=== PATIENT | male | born 1955 | race African-American/Black ===

== ENCOUNTER 2020-08-04 20:33 | Emergency (ER) | payer BC, MEDICAID ==
[~2020-08-04] VITALS: Ht 200.7 cm; Wt 100.0 kg
[2020-08-04] MEDS ORDERED: LABETALOL HCL 20MG/4ML CARPUJECT IV ONE (22:30)
[2020-08-04] MEDS ORDERED: ASPIRIN 81MG TABLET PO ONE (22:30)
[2020-08-04] MEDS ORDERED: LABETALOL 5MG/ML SYR 20 MG/4 ML SYRINGE IV NR (22:30)
[2020-08-04 22:51] LABS: BASOPHILS % 0.9 % (0.0-2.0); EOSINOPHILS % 8.7 % (0.0-5.0); HEMATOCRIT. 48.2 % (42.0-52.0); HEMOGLOBIN. 16.3 g/dL (14.0-18.0); LYMPHOCYTES % 29.1 % (20.0-50.0); MEAN CORPUSCULAR HEMOGLOBIN 28.7 pg (28.0-32.0); MEAN CORPUSCULAR VOLUME 84.6 fL (80.0-94.0); MEAN PLATELET VOLUME 9.1 fl (7.4-10.4); MONOCYTES % 8.7 % (2.0-8.0); NEUTROPHILS % 52.6 % (40.0-76.0); PLATELET 227 x1000/uL (130-400); RED BLOOD CELL COUNT 5.69 mill/uL (4.7-6.1); RED CELL DISTRIBUTION WIDTH 14.5 % (11.6-14.6)
[2020-08-04 22:52] LABS: CHLORIDE 105 mEq/L (98-107)
[2020-08-05] MEDS ORDERED: METF-414 MT (02:21)
[2020-08-05] MEDS ORDERED: AMLO5TAB88 MT (02:21)
[2020-08-05] MEDS ORDERED: ALBU6.7H9 INH (02:22)
[2020-08-05 04:35] VITALS: BP 154/90
== END 2020-08-05 04:00 | disposition home or self-care (01) ==
LOC: ER 20:33
DX: R07.89 Other chest pain (principal); I10 Essential (primary) hypertension; E11.65 Type 2 diabetes mellitus with hyperglycemia; Z79.899 Other long term (current) drug therapy
CPT/HCPCS: 36415; 71045; 80053; 82962; 83880; 84484; 85025; 93005; 96374; 99285; J3490; Z7610

== ENCOUNTER 2022-04-03 05:10 | Emergency (ER) | payer MEDICARE, MEDICAID ==
[~2022-04-03] VITALS: Ht 198.1 cm; Wt 110.9 kg
[~2022-04-03 05:10] MED LIST: ALBU6.7H3 INH; AMLO5TAB88 MT; METF-414 MT
[2022-04-03 06:00] VITALS: BP 125/92
[2022-04-03] MEDS ORDERED: IBUP-2029 MT (12:54)
== END 2022-04-03 13:07 | disposition home or self-care (01) ==
LOC: ER 05:10
DX: S82.52XA Displaced fracture of medial malleolus of left tibia, initial encounter for closed fracture (principal); E11.9 Type 2 diabetes mellitus without complications; I10 Essential (primary) hypertension; V09.9XXA Pedestrian injured in unspecified transport accident, initial encounter; Y93.89 Activity, other specified; Y92.410 Unspecified street and highway as the place of occurrence of the external cause
CPT/HCPCS: 36415; 73610; 85379; 93971; 99285

== ENCOUNTER 2022-11-09 13:55 | Inpatient (IN) | payer MEDICARE, MEDICAID ==
[~2022-11-09] VITALS: Ht 200.7 cm; Wt 103.0 kg
[~2022-11-09 13:55] MED LIST changes: +IBUP-2029 MT
[2022-11-09 19:38] LABS: EOSINOPHILS % 5.4 % (0.0-5.0); HEMATOCRIT. 46.7 % (42.0-52.0); HEMOGLOBIN. 15.1 g/dL (14.0-18.0); LYMPHOCYTES % 26.9 % (20.0-50.0); MEAN CORPUSCULAR HEMOGLOBIN 27.3 pg (28.0-32.0); MEAN CORPUSCULAR VOLUME 84.4 fL (80.0-94.0); MEAN PLATELET VOLUME 7.8 fl (7.4-10.4); MONOCYTES % 10.5 % (2.0-8.0); NEUTROPHILS % 56.2 % (40.0-76.0); PLATELET 316 x1000/uL (130-400); RED BLOOD CELL COUNT 5.53 mill/uL (4.7-6.1)
[2022-11-09 19:49] LABS: CHLORIDE 101 mEq/L (98-107)
[2022-11-09] MEDS ORDERED: VANCOMYCIN 1G PREMIX 200 ML IV SCH (21:00)
[2022-11-09] MEDS ORDERED: PIPERACILLIN/TAZ 3.375G PREMIX 50 ML IV NR (21:00)
[2022-11-09] MEDS ORDERED: SODIUM CHLORIDE 0.9% 1,000 ML IV ONE (21:00)
[2022-11-09] MEDS ORDERED: PIPERACILLIN/TAZOBACTAM 3.375GM/50ML PREMIX IV NR (21:00)
[2022-11-09] MEDS ORDERED: CLONIDINE 0.1MG TABLET PO PRN (23:30)
[2022-11-09] MEDS ORDERED: IPRATROPIUM/ALBUTEROL 0.5-3(2.5)MG/3ML NEB HHN PRN (23:30)
[2022-11-09] MEDS ORDERED: DOCUSATE SODIUM 100MG CAPSULE PO PRN (23:30)
[2022-11-09] MEDS ORDERED: GUAIFENESIN 200MG/10ML SUGAR FREE UDC PO PRN (23:30)
[2022-11-09] MEDS ORDERED: ACETAMINOPHEN 325MG TABLET PO PRN (23:30)
[2022-11-09] MEDS ORDERED: ONDANSETRON HCL 4MG/2ML INJ IV PRN (23:30)
[2022-11-09] MEDS ORDERED: DEXTROSE 50% WATER 50ML SYRINGE IV PRN (23:30)
[2022-11-09] MEDS ORDERED: SODIUM CHLORIDE 0.9% 1,000 ML IV SCH (23:30)
[2022-11-09] MEDS ORDERED: MAGNESIUM/ALUMINUM HYDROXIDE/SIMETHICONE 30ML UDC PO PRN (23:30)
[2022-11-09] MEDS ORDERED: AMLODIPINE 5MG TABLET PO SCH (23:45)
[2022-11-09] MEDS ORDERED: CEFEPIME 1,000 MG in DEXTROSE 5% WATER 50 ML IV SCH (23:59)
[2022-11-10] MEDS: PANTOPRAZOLE 40MG DR TABLET PO SCH ×2 (00:18→11:59)
[2022-11-10] MEDS: HYDROCODONE/ACETAMINOPHEN 5/325MG TABLET PO PRN ×3 (00:18→20:28)
[2022-11-10 00:43] LABS: CHLORIDE 103 mEq/L (98-107)
[2022-11-10 00:53] LABS: HDL CHOLESTEROL 65 mg/dL (40-59); LDL CHOLESTEROL 68 mg/dL (5-100)
[2022-11-10] MEDS ORDERED: KCL 10MEQ/50ML PREMIX 50 ML IV NR ×2 (01:00→18:00)
[2022-11-10 01:07] LABS: D-DIMER 1.03 mg/L FEU (<0.50); PROTHROMBIN TIME 10.8 sec (9.6-11.0)
[2022-11-10 01:15] LABS: FOLIC ACID (FOLATE) SERUM >20 ng/mL ng/mL (>5.38); VITAMIN B12 SERUM 297 pg/mL (211-911)
[2022-11-10 02:45] VITALS: BP 144/84; PULSE 64; RESP 20; TEMP 96.3
[2022-11-10 04:00] VITALS: BP 144/84; PULSE 64; RESP 20; TEMP 96.3
[2022-11-10] MEDS: INSULIN LISPRO 100 UNITS/ML SUBCUT SCH ×4 (07:28→21:00)
[2022-11-10] MEDS: BLOOD SUGAR DIAGNOSTIC STRIP TEST SCH ×4 (07:28→21:00)
[2022-11-10 08:00] VITALS: BP 135/87; PULSE 64; RESP 19; TEMP 97.9
[2022-11-10] MEDS: LOSARTAN POTASSIUM 100 MG TABLET PO SCH ×2 (09:00→11:17)
[2022-11-10] MEDS: ENOXAPARIN 40MG/0.4ML SYR SUBCUT SCH (09:00)
[2022-11-10 09:10] LABS: BASOPHILS % 1.4 % (0.0-2.0); EOSINOPHILS % 6.3 % (0.0-5.0); HEMATOCRIT. 44.3 % (42.0-52.0); HEMOGLOBIN. 14.7 g/dL (14.0-18.0); LYMPHOCYTES % 15.7 % (20.0-50.0); MEAN CORPUSCULAR HEMOGLOBIN 27.2 pg (28.0-32.0); MEAN CORPUSCULAR VOLUME 81.9 fL (80.0-94.0); MONOCYTES % 10.4 % (2.0-8.0); NEUTROPHILS % 66.2 % (40.0-76.0); PLATELET 311 x1000/uL (130-400); RED BLOOD CELL COUNT 5.41 mill/uL (4.7-6.1); RED CELL DISTRIBUTION WIDTH 15.7 % (11.6-14.6)
[2022-11-10 12:00] VITALS: BP 145/92; PULSE 64; RESP 18; TEMP 97.9
[2022-11-10] MEDS: CEFEPIME 2,000 MG in DEXT 5% WATER 100 ML IV SCH (12:00)
[2022-11-10] MEDS: VANCOMYCIN 1.25GM PMX (XELLIA) 250 ML IV SCH (13:30)
[2022-11-10 15:09] LABS: T4 FREE 1.14 ng/dL (0.76-1.46)
[2022-11-10 16:00] VITALS: BP 141/89; PULSE 69; RESP 19; TEMP 97.9
[2022-11-10] MEDS ORDERED: NALOXONE HCL 0.4MG/ML VIAL IV PRN (17:00)
[2022-11-10 20:00] VITALS: BP 151/79; PULSE 66; RESP 20; TEMP 97.8
[2022-11-10] MEDS ORDERED: ATORVASTATIN CALCIUM 40MG TABLET PO SCH (21:00)
[2022-11-11] VITALS (7 sets, daily range): BP systolic 117–145; BP diastolic 71–87; PULSE 55–65; RESP 18–20; TEMP 96.8–98.8; O2SAT 100
[2022-11-11] MEDS: VANCOMYCIN 1.25GM PMX (XELLIA) 250 ML IV SCH (01:13)
[2022-11-11] MEDS: BLOOD SUGAR DIAGNOSTIC STRIP TEST SCH ×3 (06:54→17:13)
[2022-11-11] MEDS: INSULIN LISPRO 100 UNITS/ML SUBCUT SCH ×3 (07:55→17:14)
[2022-11-11] MEDS: PANTOPRAZOLE 40MG DR TABLET PO SCH (08:20)
[2022-11-11 08:45] LABS: CHLORIDE 103 mEq/L (98-107)
[2022-11-11 08:46] LABS: HEMATOCRIT 45.2 % (42.0-52.0); HEMOGLOBIN 14.8 g/dL (14.0-18.0); MEAN CORPUSCULAR HEMOGLOBIN 27.2 pg (28.0-32.0); MEAN CORPUSCULAR VOLUME 83.2 fL (80.0-94.0); PLATELET 328 x1000/uL (130-400); RED BLOOD CELL COUNT 5.43 mill/uL (4.7-6.1); RED CELL DISTRIBUTION WIDTH 15.5 % (11.6-14.6)
[2022-11-11] MEDS: LOSARTAN POTASSIUM 100 MG TABLET PO SCH (08:52)
[2022-11-11] MEDS: HYDROCODONE/ACETAMINOPHEN 5/325MG TABLET PO PRN (08:52)
[2022-11-11] MEDS: ENOXAPARIN 40MG/0.4ML SYR SUBCUT SCH (09:00)
[2022-11-11] MEDS ORDERED: VANCOMYCIN 1.25GM PMX (XELLIA) 250 ML IV SCH (11:00)
[2022-11-11] MEDS: CEFEPIME 2,000 MG in DEXT 5% WATER 100 ML IV SCH ×3 (12:41)
[2022-11-12] MEDS ORDERED: FAMOTIDINE 20MG TABLET PO SCH (09:00)
== END 2022-11-11 18:34 | disposition home or self-care (01) | DRG 638 ==
LOC: ER 13:55 → 6EST 23:52
PROVIDERS: ADMIT Internal Medicine; ATTEND Internal Medicine
DX: E11.69 Type 2 diabetes mellitus with other specified complication (principal); L02.611 Cutaneous abscess of right foot; M86.8X7 Other osteomyelitis, ankle and foot; E11.42 Type 2 diabetes mellitus with diabetic polyneuropathy; E78.5 Hyperlipidemia, unspecified; L97.519 Non-pressure chronic ulcer of other part of right foot with unspecified severity; I10 Essential (primary) hypertension; E11.51 Type 2 diabetes mellitus with diabetic peripheral angiopathy without gangrene; E78.00 Pure hypercholesterolemia, unspecified; R74.8 Abnormal levels of other serum enzymes; R79.89 Other specified abnormal findings of blood chemistry; F17.210 Nicotine dependence, cigarettes, uncomplicated; J45.909 Unspecified asthma, uncomplicated; Z79.4 Long term (current) use of insulin; Z79.84 Long term (current) use of oral hypoglycemic drugs; Z79.899 Other long term (current) drug therapy
CPT/HCPCS: 36415; 73630; 73660; 73718; 80048; 80053; 80061; 82607; 82746; 82962; 83036; 83605; 84145; 84439; 84443; 85025; 85027; 85379; 93970; 99285; J0692; J1650; J1815; J2543; J3370; J3480; J7030; J7060

== ENCOUNTER 2024-08-03 03:20 | Inpatient (IN) | payer OTHER, MEDICAID, MEDICARE ==
[~2024-08-03] VITALS: Ht 200.7 cm; Wt 114.0 kg
[~2024-08-03 03:20] MED LIST changes: +AMI2 MT; -AMLO5TAB88 MT; +APIX5TAB MT; +ASPI-1406 PO; +BO1 TP; +FLUT9.9S BOTHNSTRLS; +HYDR-4001 MT; -IBUP-2029 MT; +LIP40 PO; +METO-539 PO
[2024-08-03 04:08] LABS: DIFFERENTIAL COMMENT 0; HEMATOCRIT. 38.5 % (42.0-52.0); HEMOGLOBIN. 12.3 g/dL (14.0-18.0); LYMPHOCYTES % 13.1 % (20.0-50.0); MEAN CORPUSCULAR HEMOGLOBIN 24.3 pg (28.0-32.0); MEAN CORPUSCULAR VOLUME 75.9 fL (80.0-94.0); MEAN PLATELET VOLUME 8.4 fl (7.4-10.4); MONOCYTES % 8.8 % (2.0-8.0); NEUTROPHILS % 73.1 % (40.0-76.0); PLATELET 267 x1000/uL (130-400); RED BLOOD CELL COUNT 5.07 mill/uL (4.7-6.1); RED CELL DISTRIBUTION WIDTH 17.2 % (11.6-14.6); WHITE BLOOD COUNT 9.6 x1000/uL (4.5-11.0)
[2024-08-03 04:15] LABS: CHLORIDE 107 mEq/L (98-107); POTASSIUM 3.9 mEq/L (3.5-5.1); SODIUM 141 mEq/L (136-145)
[2024-08-03 04:16] LABS: CARBON DIOXIDE 29 mEq/L (21-32)
[2024-08-03 04:21] LABS: CREATININE 0.8 mg/dL (0.6-1.3); GLUCOSE 136 mg/dL (70-105); UREA NITROGEN BLOOD 14 mg/dL (9-23)
[2024-08-03 04:22] LABS: TROPONIN I HIGH SENSITIVITY 30 ng/L (3.0-53)
[2024-08-03] MEDS ORDERED: LOSA-415 MT (06:22)
[2024-08-03] MEDS ORDERED: GABA800T97 PO (06:22)
[2024-08-03] MEDS ORDERED: DILT180C66 PO (06:22)
[2024-08-03] MEDS ORDERED: FERR325T30 PO (06:22)
[2024-08-03] MEDS ORDERED: ESCI5TAB MT (06:22)
[2024-08-03] MEDS ORDERED: METO-396 PO (06:22)
[2024-08-03 07:14] VITALS: BP 149/87; PULSE 54; RESP 20; TEMP 36.2; O2SAT 98
[2024-08-03 08:00] VITALS: BP 160/89; PULSE 69; RESP 20; TEMP 36.6; O2SAT 100
[2024-08-03] MEDS ORDERED: ACETAMINOPHEN 325MG TABLET PO PRN (11:15)
[2024-08-03] MEDS ORDERED: ONDANSETRON HCL 4MG/2ML INJ IV PRN (11:15)
[2024-08-03] MEDS ORDERED: *PATIENT'S OWN MEDICATION STORAGE XX SCH (11:45)
[2024-08-03] MEDS: ASPIRIN 81MG TABLET PO SCH (11:55)
[2024-08-03] MEDS: FUROSEMIDE 40MG/4ML VIAL IVP SCH (11:55)
[2024-08-03] MEDS: APIXABAN 5 MG TABLET PO SCH (11:55)
[2024-08-03] MEDS: AMIODARONE 200MG TABLET PO SCH (11:55)
[2024-08-03 12:00] VITALS: BP 148/83; PULSE 51; RESP 20; TEMP 36.7; O2SAT 100
[2024-08-03 14:43] VITALS: BP 148/83; PULSE 51; TEMP 98.1; O2SAT 94
[2024-08-03 14:46] LABS: TROPONIN I HIGH SENSITIVITY 24 ng/L (3.0-53)
== END 2024-08-03 15:33 | disposition home or self-care (01) | DRG 291 ==
LOC: ER 03:20 → 5WST 04:56
PROVIDERS: ADMIT Internal Medicine; ATTEND Internal Medicine
DX: I11.0 Hypertensive heart disease with heart failure (principal); I50.23 Acute on chronic systolic (congestive) heart failure; I48.92 Unspecified atrial flutter; I48.0 Paroxysmal atrial fibrillation; E11.9 Type 2 diabetes mellitus without complications; E78.00 Pure hypercholesterolemia, unspecified; F32.A Depression, unspecified; I25.10 Atherosclerotic heart disease of native coronary artery without angina pectoris; J44.89 Other specified chronic obstructive pulmonary disease; Z79.01 Long term (current) use of anticoagulants; Z95.1 Presence of aortocoronary bypass graft
CPT/HCPCS: 36415; 71045; 80048; 83880; 84484; 85025; 85379; 93005; 99285; J1940